=== PATIENT | female | born 1970 | race Caucasian/White ===

== ENCOUNTER 2016-11-23 12:54 | Emergency (ER) | payer MEDICARE, OTHER ==
--- NOTE | ~2016-11-23 | CR20 ---
[facility] A Service of [facility] & [facility] RADIOLOGY TEXT RESULTS PATIENT: ELZA BYRNE LOCATION: [facility] : [birth year] UNIT #: [id number] AGE: [address]: Bryant Keating MD SEX: F ORDER DR: [id number] [facility] [address] [place], [place] [address] [id number] E MR#: [id number] Acc #: [id number] NAME: ELZA BYRNE : 1970 SEX: F STUDY DATE/TIME: 11/23/2016 UNIT: [facility] ROOM: STUDY DESCRIPTION: CR Ankle Min 3 Views Lt Attending Physician: Bryant Keating M.D. Ordering Physician: Bryant Keating M.D. Primary Care Physician: Sarita Wagoner M.D. MEDICAL IMAGING REPORT This report is preliminary unless electronic signature is present EXAM Left ankle 11/23 at 12:06 INDICATIONS Ankle pain and swelling after fall today. FINDINGS 3 views of the left ankle were obtained. The patient is status post ORIF of the distal fibula with plate and multiple screws. Patient is status post ORIF of the medial malleolus with 2 long screws. No acute fracture or malalignment is seen. The mortise is intact. IMPRESSION No acute fracture or malalignment. Status post ORIF of the fibula and medial malleolus. Dictated by... Moshe Ignacio Jr., M.D. THIS IS AN ELECTRONICALLY VERIFIED REPORT Moshe Ignacio Jr., M.D. at 11/26/2016 7:59 AM RLK/keyonna TD: 11/23/2016 14:59 JOB #: [id number] MEDICAL IMAGING REPORT Page 1 of 1 COPY
--- NOTE | ~2016-11-23 | EKG ---
PATIENT: ELZA BYRNE UNIT #: [id number] Ventricular Rate: 108 BPM Atrial Rate: 108 BPM P-R Interval: 158 ms QRS Duration: 78 ms Q-T Interval: 338 ms QTC Calculation(Bezet): 452 ms P West: 38 degrees Calculated R West: 13 degrees Calculated T West: -7 degrees Diagnosis Line: Sinus tachycardia Diagnosis Line: Septal infarct , age undetermined Diagnosis Line: Abnormal ECG Diagnosis Line: When compared with ECG of 30-MAR-2014 01:59, Diagnosis Line: Septal infarct is now Present Diagnosis Line: Nonspecific T wave abnormality now evident in Diagnosis Line: Inferior leads Diagnosis Line: Confirmed by BENI COSME MD ([id number]) on 11/23/2016 Diagnosis Line: 6:41:42 PM INTERPRETING MD: BA HOLMAN
--- NOTE | ~2016-11-23 | CR126 ---
[facility] A Service of [facility] & [facility] RADIOLOGY TEXT RESULTS PATIENT: ELZA BYRNE LOCATION: [facility] : [birth year] UNIT #: [id number] AGE: [address]: Bryant Keating MD SEX: F ORDER DR: [id number] [facility] [address] [place], [place] [address] [id number] E MR#: [id number] Acc #: [id number] NAME: ELZA BYRNE : 1970 SEX: F STUDY DATE/TIME: 11/23/2016 UNIT: [facility] ROOM: STUDY DESCRIPTION: CR Foot Complete Min 3 View Lt Attending Physician: Bryant Keating M.D. Ordering Physician: Bryant Keating M.D. Primary Care Physician: Sarita Wagoner M.D. MEDICAL IMAGING REPORT This report is preliminary unless electronic signature is present EXAM Left foot 11/23 at 12:07 INDICATIONS Pain and swelling after fall today. FINDINGS 3 views of the left foot are compared with 03/29/2014. Patient is status post ORIF of the ankle. No acute fracture or malalignment is seen within the foot. The soft tissues are unremarkable. IMPRESSION Postop changes in the ankle. The foot is negative. Dictated by... Moshe Ignacio Jr., M.D. THIS IS AN ELECTRONICALLY VERIFIED REPORT Moshe Ignacio Jr., M.D. at 11/26/2016 7:59 AM RLK/pcl TD: 11/23/2016 15:07 JOB #: [id number] MEDICAL IMAGING REPORT Page 1 of 1 COPY
--- NOTE | ~2016-11-23 | CT71 ---
[facility] A Service of [facility] RADIOLOGY TEXT RESULTS PATIENT: ELZA BYRNE LOCATION: [facility] : 68 UNIT #: [id number] AGE: [address]: Bryant Keating MD SEX: F ORDER DR: [id number] [facility] [address] [place], [place] [address] [id number] E MR#: [id number] Acc #: [id number] NAME: ELZA BYRNE : 1970 SEX: F STUDY DATE/TIME: 11/23/2016 15:16 UNIT: [facility] ROOM: STUDY DESCRIPTION: CT Head Wo Contrast Attending Physician: Bryant Keating M.D. Ordering Physician: Bryant Keating M.D. Primary Care Physician: Sarita Wagoner M.D. MEDICAL IMAGING REPORT This report is preliminary unless electronic signature is present EXAM CT brain without contrast HISTORY Headache after fall and head injury, posterior head today. Loss of balance. TECHNIQUE This CT exam was performed with one or more of the following radiation dose reduction techniques: automatic exposure control, adjustment of mA and/or kV according to patient size, and iterative reconstruction. FINDINGS CT brain without contrast demonstrates no intracranial hemorrhage, mass or edema. No midline shift or ventricular dilatation or extraaxial fluid collection. Oijj-rh-wsrivjhr generalized cerebellar cortical atrophy. IMPRESSION No acute findings. Dictated by... Gerhard Cabrera M.D. THIS IS AN ELECTRONICALLY VERIFIED REPORT Gerhard Cabrera M.D. at 11/23/2016 11:11 PM DFL/pcl TD: 11/23/2016 18:30 JOB #: [id number] [facility] A Service [facility] RADIOLOGY TEXT RESULTS PATIENT: ELZA BYRNE LOCATION: [facility] : [birth year] UNIT #: [id number] AGE: [address]: Bryant Keating MD SEX: F ORDER DR: MEDICAL IMAGING REPORT Page 1 of 1 COPY
[~2016-11-23 12:54] MED LIST: ALEVE OTC PRN; AMBIEN10 MG PO; ATENOLOL25 MG PO; BACLOFEN10 MG PO; BACTRIM DS TABL1 TA1 PO; BENTYL20 MG PO; CHLORPROMAZINE50 MG PO; FAMCICLOVIR500 MG PO; LAMICTAL100 MG PO; LAMICTAL150 MG PO; MACROBID100 MG PO; MIRALAX17 GM PO; NEXIUM PO; PERCOCET5/325 PO; PHENERGAN PO; PHENERGAN SUPP25 MG PR; REPREXAIN 7.5-21 TAB PO; RESTORIL15 MG PO; SEROQUEL PO; SEROQUEL300 M1 PO; TEMAZEPAM30 MG PO; THORAZINE50 MG PO; VICOPROFEN 200-1 TAB PO; ZOFRAN ODT4 MG PO
[2016-11-23 14:16] LABS: BASOPHIL# 0.1 X10e3 (0-0.3); EOSINOPHIL% 0.6 % (0.0-7.0); HEMATOCRIT 41.7 % (35.0-45.0); HEMOGLOBIN 13.6 gm/dL (12.0-16.0); LYMPHOCYTE# 2.4 X10e3 (1.0-3.5); LYMPHOCYTE% 36.2 % (17.0-45.0); MEAN CELL VOLUME 105.5 FL (83-96); MEAN CORPUSCULAR HEMOGLOBIN 34.5 PG (28-34); MEAN CORPUSCULAR HGB CONC 32.7 g/dL (30-36); MEAN PLATELET VOLUME 7.3 FL (6.5-11.5); MONOCYTE# 0.6 X10e3 (0-1.0); MONOCYTE% 9.1 % (3.0-12.0); NEUTROPHIL# 3.5 X10e3 (1.5-7.1); NEUTROPHIL% 53.1 % (40-75); PLATELET COUNT 250 X10e3 (140-420); RED BLOOD COUNT 3.95 X10e (3.90-5.30); RED CELL DISTRIBUTION WIDTH 14.3 % (11.0-15.5); WHITE BLOOD COUNT 6.6 X10e3 (4.0-10.5)
[2016-11-23 14:22] LABS: DIFF IND NO
[2016-11-23 14:41] LABS: ALBUMIN SERUM 3.5 g/dL (3.5-5.0); ALKALINE PHOSPHATASE 118 U/L (32-92); ALT (SGPT) 63 U/L (10-40); AST (SGOT) 88 U/L (10-42); BILIRUBIN,TOTAL 0.6 mg/dL (0.2-2.0); CALCIUM SERUM 8.7 mg/dL (8.4-10.2); CARBON DIOXIDE 19 mmol/L (22-31); CHLORIDE 107 mmol/L (100-111); CREATININE SERUM 0.7 mg/dL (0.6-1.4); GLOM FILT RATE Estimated 103.2 mL/min (>60); GLUCOSE FASTING 107 mg/dL (70-110); MAGNESIUM 1.6 mg/dL (1.6-3.0); POTASSIUM 4.1 mmol/L (3.5-5.1); PROTEIN TOTAL SERUM 6.6 g/dL (6.0-8.3); SODIUM 141 mmol/L (135-145)
[2016-11-23 14:42] LABS: BLOOD UREA NITROGEN <5 mg/dL (9-23); BUN/CREATININE RATIO 7.14
[2016-11-23 14:43] LABS: ALCOHOL BLOOD 218 mg/dL ([, 0])
[2016-11-23 15:52] LABS: POC - CKMB <1.0 ng/mL (0.0-7.9); POC - TROPONIN <0.05 ng/mL (<=0.05)
== END 2016-11-23 17:21 | disposition home or self-care (01) ==
LOC: CED 12:54
PROVIDERS: Emergency Medicine
DX: S93.602A Unspecified sprain of left foot, initial encounter (principal); F10.10 Alcohol abuse, uncomplicated; F31.9 Bipolar disorder, unspecified; Z88.5 Allergy status to narcotic agent; Z79.899 Other long term (current) drug therapy; X50.1XXA Overexertion from prolonged static or awkward postures, initial encounter; Y92.009 Unspecified place in unspecified non-institutional (private) residence as the place of occurrence of the external cause
CPT/HCPCS: 70450; 73610; 73630; 80053; 82553; 83735; 84484; 85025; 93005; 99284; G0480